=== PATIENT | female | born 1965 ===

== ENCOUNTER 2017-05-11 07:01 | Observation (INO) | payer MEDICAID ==
[2017-05-10 13:21] VITALS: BMI 32.9
[2017-05-11] MEDS ORDERED: Bupivacaine 0.5% 50 ML IJ ONE (07:26)
[2017-05-11] MEDS ORDERED: Lidocaine 1% Inj (20ml) IJ ONE (07:26)
[2017-05-11] MEDS ORDERED: ceFAZolin 1 GM in Sodium Chloride 0.9% 100 ML IVPB ONE (07:26)
--- NOTE | 2017-05-11 07:28 | CP.SDSHP ---
Same Day Surgery H & P - History Proposed Procedure: Tarsal tunnel release left foot Pre-Op Diagnosis: Tarsal tunnel syndrome left foot - Previous Medical/Surgical History Pain: 6.Severe Pain - Allergies Allergies: Allergies No Known Allergies Allergy (Verified 06/15/16 20:27) - Physical Exam Mental Status: Alert & Oriented x3 - {Optional Preform as Required} Integument: WNL Ortho: WNL - Impression Pt. Evaluated Today:Candidate for Anesthesia & Procedure: Yes - Date & Time Date: 05/11/17 Time: 07:28 Short Stay Discharge - Short Stay Discharge Admitting Diagnosis/Reason for Visit: G57.52 Disposition: HOME/ ROUTINE Medications: Cephalexin [Keflex] 500 mg PO TID 7 Days oxyCODONE/Acetaminophen [Percocet 5/325 mg Tab] 1 tab PO Q4 PRN #30 tab PRN Reason: Pain, Moderate (4-7) Referrals: Connor Welsh MD [Primary Care Provider] - Instructions: Pain Management After Surgery (GEN), Surgical Site Infections (DC ), RICE Therapy (GEN), Oxycodone/Acetaminophen (By mouth) Progress Note/Discharge Note with Instructions: - Patient evaluated bedside s/p surgical procedure. - After surgical procedure patient in NAD - (+) Void, (+) Appetite - Capillary refill time <3s and NVSI intact. - Patient denies complaints at this time - Post operative instructions and plan of care explained to patient at length. - Pt. acknowledges understanding. - Patient stable for DC per podiatric surgery
[2017-05-11] MEDS ORDERED: Sodium Chloride 0.9% 1,000 ML IV SCH (07:30)
--- NOTE | 2017-05-11 07:31 | CP.PCM.PN ---
Subjective - Date & Time of Evaluation Date of Evaluation: 05/11/17 Time of Evaluation: 07:28 - Subjective Subjective: 52 year old female patient with PMH of HTN seen in [facility] for preoperative evaluation for right bunion surgery by Dr. Ojeda today. Patient has been having a lot of pain to her left foot and ankle recently and has exhausted conservative treatment. She now opts for surgical intervention. NPO status confirmed. Patient is NAD and AAO x 3. Denies N/V/F/C/CP/SOB 59 year old female with PMH of HTN, arthritis was seen in [facility] for pre-operative evaluation for right bunion surgery by today. Patient has been having a lot of pain on her right bunion and has exhausted conservative treatment and now opts for surgical intervention. NPO status confirmed. Patient is NAD and AAOx3, denies n/v/f/c/sob/cp. Objective - Medications Medications: Current Medications Bupivacaine HCl (Marcaine 0.5% 50 Ml) 30 ml IJ ONCE ONE Stop: 05/11/17 07:27 Cefazolin Sodium 1 gm/ Sodium (Chloride) 100 mls @ 100 mls/hr IVPB ONCE ONE Stop: 05/11/17 08:25 Sodium Chloride (Sodium Chloride 0.9%) 1,000 mls @ 0 mls/hr IV .Q0M RYLIE PRN Reason: As Directed Stop: 05/12/17 07:26 Lidocaine HCl (Lidocaine 1% (20ml)) 20 ml IJ ONCE ONE Stop: 05/11/17 07:27 - Constitutional Appears: Well, Non-toxic, No Acute Distress - Extremities Exam Additional comments: LE focused exam Vasc: DP/PT pulses palpable 2/4 b/l. Skin temp warm to warm from proximal to distal. CFT < 3 seconds to digits 1-5 b/l. No lower extremity edema noted at this time. Neuro: Epicritic and protective sensation grossly intact b/l. Positive Tinnel sign left foot Derm: No open lesions, wounds, maceration, xerosis, abnormal pigmentation or abnormal growths noted at this time MSK: Pain to medial ankle with eversion of left foot - Neurological Exam Neurological Exam: Alert, Awake, Oriented x3 - Psychiatric Exam Psychiatric exam: Normal Affect, Normal Mood Assessment and Plan - Assessment and Plan (Free Text) Assessment: 52 year old female with Tarsal Tunnel Syndrome seen preoperatively in [facility] Plan: Pt was seen and examined in [facility] Pt NPO status was confirmed All Pre-op testing and clearance was in the chart Pt has exhausted all conservative treatment at this time and is opting for surgical intervention Pt was explained procedure and post-operative course All pt's questions were answered to satisfaction No guarantees were made Pt understands all risks, benefits and complications of procedure Pt will follow-up with Dr. Ojeda
[2017-05-11] MEDS ORDERED: Bupivacaine 0.5% Inj(30mL) ONE (07:37)
[2017-05-11 07:40] LABS: BASO % 0.4 % (0.0-2.0); EOS # 0.2 K/uL (0.0-0.7); EOS % 1.8 % (0.0-4.0); HEMATOCRIT 38.9 % (34.0-47.0); LYMPH % 28.7 % (20.0-40.0); MEAN CELL VOLUME 82.1 fl (81.0-99.0); MEAN CORPUSCULAR HEMOGLOBIN 26.7 pg (27.0-31.0); MEAN CORPUSCULAR HGB CONC 32.5 g/dL (33.0-37.0); MEAN PLATELET VOLUME 9.7 fl (7.2-11.7); NEUT # 6.1 K/uL (1.8-7.0); NEUT % 59.1 % (50.0-75.0); NRBC % 0.1 % (0.0-0.0); RED CELL DISTRIBUTION WIDTH 15.1 % (11.5-14.5); WHITE BLOOD COUNT 10.4 K/uL (4.8-10.8)
[2017-05-11] MEDS ORDERED: Lactated Ringer's 1,000 ML IV ONE ×4 (07:45)
[2017-05-11] MEDS ORDERED: Rocuronium 10 mg/ml (5 ml) ONE (07:46)
[2017-05-11] MEDS ORDERED: Propofol 10 mg/ml Inj (20 ML) ONE ×2 (07:46→08:48)
[2017-05-11] MEDS ORDERED: Midazolam 2 MG/2 ML VIAL ONE (07:46)
[2017-05-11] MEDS ORDERED: Sodium Chloride 0.9% 200 ML IV ONE (08:00)
[2017-05-11 08:02] LABS: ALB/GLOB RATIO 1.2 (1.0-2.1); ALKALINE PHOSPHATASE 87 U/L (38-126); ALT/SGPT 24 U/L (9-52); AST/SGOT 17 U/L (14-36); BILIRUBIN,TOTAL 0.5 mg/dl (0.2-1.3); BLOOD UREA NITROGEN 15 mg/dl (7-17); CALCIUM 10.1 mg/dL (8.4-10.2); CARBON DIOXIDE 28 mmol/L (22-30); CHLORIDE 102 mmol/L (98-107); GFR AFRICAN-AMERICAN > 60; GLUCOSE,RANDOM 162 mg/dL (65-105); SODIUM 142 mmol/l (132-148); TOTAL PROTEIN 8.1 G/DL (6.3-8.2)
[2017-05-11] MEDS ORDERED: Dexamethasone 4 mg/1 ml ONE (08:29)
[2017-05-11] MEDS ORDERED: Neostigmine Methylsulfate 3mg/3ml Syringe IV ONE (08:30)
[2017-05-11] MEDS ORDERED: HYDROmorphone 0.5 mg/0.5 ml ISec IVP PRN (08:38)
[2017-05-11] MEDS ORDERED: Lactated Ringer's 1,000 ML IV SCH (08:38)
--- NOTE | 2017-05-11 09:13 | PCM.SURG1 ---
Surgeon's Initial Post Op Note - Surgeon's Notes Surgeon: Bandar Ojeda Bulk Clerk: Sandeep Martin Type of Anesthesia: General Endo Anesthesia Administered By: Dr. Dias Pre-Operative Diagnosis: Tarsal Tunnel Syndrome, Left foot Operative Findings: See dictation. M- 3-0 Vicryl, 3-0 Vicryl, 4-0 Prolene Post-Operative Diagnosis: Same Operation Performed: Tarsal Tunnel Release left foot Specimen/Specimens Removed: None Estimated Blood Loss: EBL {In ML}: 5 Blood Products Given: N/A Drains Used: No Drains Post-Op Condition: Good Date of Surgery/Procedure: 05/11/17 Time of Surgery/Procedure: 09:12
--- NOTE | 2017-05-11 11:21 | CP.PCM.HP ---
<Serafin Farnsworth - Last Filed: 05/11/17 14:38> History of Present Illness - History of Present Illness History of Present Illness: Patient seen and examined with attending in PACU. 52 year old female patient with PMH of HTN, hypothyroidism, anxiety presented this AM in [facility] for left tarsal tunnel release this AM. No complications noted throughout surgery. Patient has been having pain of her left foot/ankle x 5 years, was evaluated by Dr. Ojeda approx 3-5 months ago and diagnosed with left tarsal tunnel syndrome. Patient had exhausted conservative treatment and opted for surgical intervention. Denies N/V/F/C/CP/SOB. Patient with a lot of pain of left foot. PMD: Dr. Peterson PMHx: HTN, hypothyroidism, anxiety Meds: hydroxyine 25mg 2 caps BID lexapro 20mg qd ambien 10mg qhs Levothyroxine 125mcg qd amlodipine 10mg qd Verified meds with [facility] Allergies: NKDA Surgeries: Right foot surgery 10 yrs ago, unknown Family history: non-contributory Social history: Denies etoh, tobacco, or drug use. Present on Admission - Present on Admission Any Indicators Present on Admission: No Review of Systems - Review of Systems All systems: reviewed and no additional remarkable complaints except (mentioned in HPI) Past Patient History - Infectious Disease Hx of Infectious Diseases: None - Past Medical History & Family History Past Medical History?: Yes - Past Social History Smoking Status: Never Smoked - CARDIAC Hx Cardiac Disorders: Yes Hx Hypertension: Yes (NO MEDS) - PULMONARY Hx Respiratory Disorders: No - NEUROLOGICAL Hx Neurological Disorder: No - HEENT Hx HEENT Problems: No - RENAL Hx Chronic Kidney Disease: No - ENDOCRINE/METABOLIC Hx Endocrine Disorders: Yes Hx Diabetes Mellitus Type 2: Yes (NO MEDS) Hx Hypothyroidism: Yes - HEMATOLOGICAL/ONCOLOGICAL Hx Blood Disorders: No Hx Anemia: No Hx Blood Transfusions: No - INTEGUMENTARY Hx Dermatological Problems: No - MUSCULOSKELETAL/RHEUMATOLOGICAL Hx Musculoskeletal Disorders: No - GASTROINTESTINAL Hx Gastrointestinal Disorders: No - GENITOURINARY/GYNECOLOGICAL Hx Genitourinary Disorders: No - PSYCHIATRIC Hx Psychophysiologic Disorder: Yes Hx Anxiety: Yes Hx Depression: Yes - SURGICAL HISTORY Hx Surgeries: Yes Other/Comment: RIGHT FOOT SURGERY-LIGAMENT - ANESTHESIA Hx Anesthesia: Yes Hx Anesthesia Reactions: No Hx Malignant Hyperthermia: No Has any member of the family had a problem w/ anesthesia?: No Meds Allergies/Adverse Reactions: Allergies Allergy/AdvReac Type Severity Reaction Status Date / Time No Known Allergies Allergy Verified 06/15/16 20:27 Physical Exam - Constitutional Appears: Non-toxic, In Acute Distress (mild, due to pain) - Head Exam Head Exam: ATRAUMATIC, NORMAL INSPECTION, NORMOCEPHALIC - Eye Exam Eye Exam: Normal appearance - Neck Exam Neck exam: Positive for: Normal Inspection - Respiratory Exam Respiratory Exam: Clear to Auscultation Bilateral, NORMAL BREATHING PATTERN. absent: Decreased Breath Sounds, Rhonchi, Wheezes - Cardiovascular Exam Cardiovascular Exam: REGULAR RHYTHM, RRR, +S1, +S2 - GI/Abdominal Exam GI & Abdominal Exam: Normal Bowel Sounds, Soft. absent: Tenderness - Extremities Exam Additional comments: Right foot unremarkable. Left foot in dressing, c/d/i - Neurological Exam Neurological exam: Alert, Oriented x3 - Psychiatric Exam Psychiatric exam: Normal Affect, Normal Mood - Skin Skin Exam: Dry, Intact, Normal Color, Warm Results - Vital Signs Recent Vital Signs: Last Vital Signs Temp 96.6 F L 05/11/17 09:05 Pulse 85 05/11/17 10:20 Resp 18 05/11/17 10:20 BP 150/90 05/11/17 10:20 Pulse Ox 98 05/11/17 10:20 - Labs Result Diagrams: 05/11/17 07:34 05/11/17 07:34 Labs: Laboratory Results - last 24 hr 05/11/17 05/11/17 05/11/17 07:30 07:34 07:34 WBC 10.4 RBC 4.74 Hgb 12.7 Hct 38.9 MCV 82.1 MCH 26.7 L MCHC 32.5 L RDW 15.1 H Plt Count 237 MPV 9.7 Neut % (Auto) 59.1 Lymph % (Auto) 28.7 Woodson % (Auto) 10.0 Eos % (Auto) 1.8 Baso % (Auto) 0.4 Neut # 6.1 Lymph # 3.0 Woodson # 1.0 H Eos # 0.2 Baso # 0.0 Sodium 142 Potassium 4.0 Chloride 102 Carbon Dioxide 28 Anion Gap 16 BUN 15 Creatinine 0.7 Est GFR ( Amer) > 60 Est GFR (Non-Af Amer) > 60 POC Glucose (mg/dL) 167 H Random Glucose 162 H Calcium 10.1 Total Bilirubin 0.5 AST 17 ALT 24 Alkaline Phosphatase 87 Total Protein 8.1 Albumin 4.4 Globulin 3.7 Albumin/Globulin Ratio 1.2 05/11/17 09:28 WBC RBC Hgb Hct MCV MCH MCHC RDW Plt Count MPV Neut % (Auto) Lymph % (Auto) Woodson % (Auto) Eos % (Auto) Baso % (Auto) Neut # Lymph # Woodson # Eos # Baso # Sodium Potassium Chloride Carbon Dioxide Anion Gap BUN Creatinine Est GFR ( Amer) Est GFR (Non-Af Amer) POC Glucose (mg/dL) 135 H Random Glucose Calcium Total Bilirubin AST ALT Alkaline Phosphatase Total Protein Albumin Globulin Albumin/Globulin Ratio Assessment & Plan (1) Tarsal tunnel syndrome of left side Status: Acute (2) HTN (hypertension) Status: Chronic (3) Hypothyroidism Status: Chronic (4) Anxiety Status: Chronic (5) Obesity (BMI 30.0-34.9) Status: Chronic - Assessment and Plan (Free Text) Assessment: 52 year old female with PMH of HTN, hypothyroidism, anxiety s/p left foot tarsal tunnel release POD #0. Plan: (1) Tarsal tunnel syndrome of left side POD #0 - No complications reported during surgery - Pain not well controlled, observe in med/surg overnight - Lives alone - Percocet PO PRN pain - Podiatry following - PT Eval pending - Treat anxiety as needed (2) HTN (hypertension) - Slightly elevated likely due to pain - Restart home meds (3) Hypothyroidism - Restart home meds (4) Obesity - History of IGT from fasting glucose (162 x1) - Heart healthy/diabetic diet at this time <Kristin Ceja - Last Filed: 05/12/17 07:44> Physical Exam - Skin Additional comments: ADDENDUM ATTENDING NOTE PATIENT SEEN AND EXAMINED. POST TARSAL TUNNEL RELEASE. HX HTN AND HYPOTHYROIDISM. CASE DISCUSSED WITH RESIDENT. AGREE WITH FINDINGS AND PLAN. Results - Vital Signs Recent Vital Signs: Last Vital Signs Temp 98.8 F 05/12/17 05:00 Pulse 82 05/12/17 05:00 Resp 20 05/12/17 05:00 BP 144/76 05/12/17 05:00 Pulse Ox 97 05/12/17 05:00 - Labs Result Diagrams: 05/11/17 07:34 05/11/17 07:34 Labs: Laboratory Results - last 24 hr 05/11/17 05/11/17 05/11/17 07:34 07:34 09:28 WBC 10.4 RBC 4.74 Hgb 12.7 Hct 38.9 MCV 82.1 MCH 26.7 L MCHC 32.5 L RDW 15.1 H Plt Count 237 MPV 9.7 Neut % (Auto) 59.1 Lymph % (Auto) 28.7 Woodson % (Auto) 10.0 Eos % (Auto) 1.8 Baso % (Auto) 0.4 Neut # 6.1 Lymph # 3.0 Woodson # 1.0 H Eos # 0.2 Baso # 0.0 Sodium 142 Potassium 4.0 Chloride 102 Carbon Dioxide 28 Anion Gap 16 BUN 15 Creatinine 0.7 Est GFR ( Amer) > 60 Est GFR (Non-Af Amer) > 60 POC Glucose (mg/dL) 135 H Random Glucose 162 H Calcium 10.1 Total Bilirubin 0.5 AST 17 ALT 24 Alkaline Phosphatase 87 Total Protein 8.1 Albumin 4.4 Globulin 3.7 Albumin/Globulin Ratio 1.2
[2017-05-11] MEDS: Oxycodone/Acetaminophen 5/325 mg Tab PO PRN ×3 (11:42→20:59)
--- NOTE | 2017-05-11 23:35 | CARD ---
APPROVED REPORT EKG Measurement Heart [id number] [id number] <Conclusion> Normal sinus rhythm Normal ECG
[2017-05-12] MEDS: Oxycodone/Acetaminophen 5/325 mg Tab PO PRN ×2 (00:59→10:32)
[2017-05-12] MEDS ORDERED: Levothyroxine 125 MCG TAB PO SCH (06:30)
--- NOTE | 2017-05-12 08:29 | CP.PCM.PN ---
Subjective - Date & Time of Evaluation Date of Evaluation: 05/12/17 Time of Evaluation: 07:00 Objective - Vital Signs/Intake and Output Vital Signs (last 24 hours): Temp Pulse Resp BP Pulse Ox 98.8 F 82 20 144/76 97 05/12/17 05:00 05/12/17 05:00 05/12/17 05:00 05/12/17 05:00 05/12/17 05:00 Intake and Output: 05/12/17 05/12/17 06:59 18:59 Intake Total 600 Balance 600 - Medications Medications: Current Medications Acetaminophen (Tylenol 325mg Tab) 650 mg PO Q4 PRN PRN Reason: Pain, Mild (1-3) Amlodipine Besylate (Norvasc) 10 mg PO DAILY [facility] Escitalopram Oxalate (Lexapro) 20 mg PO [facility] Last Admin: 05/11/17 21:52 Dose: 20 mg Levothyroxine Sodium (Synthroid) 125 mcg PO DAILY@0630 [facility] Last Admin: 05/12/17 06:00 Dose: 125 mcg Oxycodone/Acetaminophen (Percocet 5/325 Mg Tab) 1 tab PO Q4 PRN PRN Reason: Pain, moderate (4-7) Stop: 05/14/17 09:10 Last Admin: 05/12/17 00:59 Dose: 1 tab Oxycodone/Acetaminophen (Percocet 5/325 Mg Tab) 2 tab PO Q4 PRN PRN Reason: Pain, severe (8-10) Stop: 05/14/17 09:10 Last Admin: 05/11/17 20:59 Dose: 2 tab - Labs Labs: 05/11/17 07:34 05/11/17 07:34
[2017-05-12 08:33] VITALS: RESP 18
[2017-05-12 10:19] VITALS: O2SAT 96
[2017-05-12 12:54] VITALS: BP 131/75; PULSE 57; TEMP 98.1
--- NOTE | 2017-05-12 16:25 | CP.PCM.DIS ---
<Marisel Juan - Last Filed: 05/12/17 16:31> Provider - Provider Date of Admission: 05/11/17 10:45 Attending physician: Kristin Ceja MD Primary care physician: Connor Welsh MD Time Spent in preparation of Discharge (in minutes): 30 Diagnosis - Discharge Diagnosis (1) Tarsal tunnel syndrome of left side Status: Acute (2) Anxiety Status: Chronic Hospital Course - Lab Results Lab Results: Most Recent Lab Values WBC 10.4 K/uL (4.8-10.8) 05/11/17 07:34 RBC 4.74 Mil/uL (3.80-5.20) 05/11/17 07:34 Hgb 12.7 g/dL (12.0-16.0) 05/11/17 07:34 Hct 38.9 % (34.0-47.0) 05/11/17 07:34 MCV 82.1 fl (81.0-99.0) 05/11/17 07:34 MCH 26.7 pg (27.0-31.0) L 05/11/17 07:34 MCHC 32.5 g/dL (33.0-37.0) L 05/11/17 07:34 RDW 15.1 % (11.5-14.5) H 05/11/17 07:34 Plt Count 237 K/uL (130-400) 05/11/17 07:34 MPV 9.7 fl (7.2-11.7) 05/11/17 07:34 Neut % (Auto) 59.1 % (50.0-75.0) 05/11/17 07:34 Lymph % (Auto) 28.7 % (20.0-40.0) 05/11/17 07:34 Kimball % (Auto) 10.0 % (0.0-10.0) 05/11/17 07:34 Eos % (Auto) 1.8 % (0.0-4.0) 05/11/17 07:34 Baso % (Auto) 0.4 % (0.0-2.0) 05/11/17 07:34 Neut # 6.1 K/uL (1.8-7.0) 05/11/17 07:34 Lymph # 3.0 K/uL (1.0-4.3) 05/11/17 07:34 Kimball # 1.0 K/uL (0.0-0.8) H 05/11/17 07:34 Eos # 0.2 K/uL (0.0-0.7) 05/11/17 07:34 Baso # 0.0 K/uL (0.0-0.2) 05/11/17 07:34 Sodium 142 mmol/l (132-148) 05/11/17 07:34 Potassium 4.0 MMOL/L (3.6-5.0) 05/11/17 07:34 Chloride 102 mmol/L (98-107) 05/11/17 07:34 Carbon Dioxide 28 mmol/L (22-30) 05/11/17 07:34 Anion Gap 16 (10-20) 05/11/17 07:34 BUN 15 mg/dl (7-17) 05/11/17 07:34 Creatinine 0.7 mg/dL (0.7-1.2) 05/11/17 07:34 Est GFR ( Amer) > 60 05/11/17 07:34 Est GFR (Non-Af Amer) > 60 05/11/17 07:34 POC Glucose (mg/dL) 135 mg/dL (65-110) H 05/11/17 09:28 Random Glucose 162 mg/dL (65-105) H 05/11/17 07:34 Calcium 10.1 mg/dL (8.4-10.2) 05/11/17 07:34 Total Bilirubin 0.5 mg/dl (0.2-1.3) 05/11/17 07:34 AST 17 U/L (14-36) 05/11/17 07:34 ALT 24 U/L (9-52) 05/11/17 07:34 Alkaline Phosphatase 87 U/L (38-126) 05/11/17 07:34 Total Protein 8.1 G/DL (6.3-8.2) 05/11/17 07:34 Albumin 4.4 g/dL (3.5-5.0) 05/11/17 07:34 Globulin 3.7 gm/dL (2.2-3.9) 05/11/17 07:34 Albumin/Globulin Ratio 1.2 (1.0-2.1) 05/11/17 07:34 - Hospital Course Hospital Course: 52 year old F patient with PMH of HTN, hypothyroidism, anxiety was admitted for observation and well pain control after L tarsal tunnel release yesterday. No complications noted throughout surgery. Podiatry followed patient. Adequate pain management. Patient was discharged home safely. Home medications: oxyCODONE/Acetaminophen [Percocet 5/325 mg Tab] 1 tab PO Q4 PRN #30 tab PRN Reason: Pain, Moderate (4-7) Discharge Exam - Head Exam Head Exam: ATRAUMATIC, NORMAL INSPECTION, NORMOCEPHALIC - Eye Exam Eye Exam: EOMI, Normal appearance, PERRL - ENT Exam ENT Exam: Mucous Membranes Moist - Respiratory Exam Respiratory Exam: Clear to PA & Lateral, NORMAL BREATHING PATTERN. absent: Rales, Rhonchi, Wheezes - Cardiovascular Exam Cardiovascular Exam: REGULAR RHYTHM, +S1, +S2 - GI/Abdominal Exam GI & Abdominal Exam: Normal Bowel Sounds, Soft. absent: Mass - Extremities Exam Additional comments: Left foot bandaged, no calf tenderness. - Back Exam Back exam: NORMAL INSPECTION - Neurological Exam Neurological exam: Alert, CN II-XII Intact, Oriented x3 - Psychiatric Exam Psychiatric exam: Normal Mood Discharge Plan - Discharge Medications Prescriptions: oxyCODONE/Acetaminophen [Percocet 5/325 mg Tab] 1 tab PO Q4 PRN #30 tab PRN Reason: Pain, Moderate (4-7) - Follow Up Plan Condition: GOOD Disposition: HOME/ ROUTINE Instructions: Oxycodone/Acetaminophen (By mouth), Pain Management After Surgery (GEN), Surgical Site Infections (DC), RICE Therapy (GEN) Additional Instructions: Please remain non weight bearing to left leg. All ambulation should be performed with the aid of a walker assistive device or your crutches. Please rest and elevate your left leg as much as possible Take pain medication and antibiotics as indicated Please call Dr. Ojeda's office to make a followup appointment for next week Do not hesitate to call his office with any questions or concerns that may arise Referrals: Connor Welsh MD [Primary Care Provider] - <Kristin Ceja - Last Filed: 05/14/17 09:12> Provider - Provider Date of Admission: 05/11/17 10:45 Attending physician: Kristin Ceja MD Primary care physician: Connor Welsh MD Hospital Course - Lab Results Lab Results: Most Recent Lab Values WBC 10.4 K/uL (4.8-10.8) 05/11/17 07:34 RBC 4.74 Mil/uL (3.80-5.20) 05/11/17 07:34 Hgb 12.7 g/dL (12.0-16.0) 05/11/17 07:34 Hct 38.9 % (34.0-47.0) 05/11/17 07:34 MCV 82.1 fl (81.0-99.0) 05/11/17 07:34 MCH 26.7 pg (27.0-31.0) L 05/11/17 07:34 MCHC 32.5 g/dL (33.0-37.0) L 05/11/17 07:34 RDW 15.1 % (11.5-14.5) H 05/11/17 07:34 Plt Count 237 K/uL (130-400) 05/11/17 07:34 MPV 9.7 fl (7.2-11.7) 05/11/17 07:34 Neut % (Auto) 59.1 % (50.0-75.0) 05/11/17 07:34 Lymph % (Auto) 28.7 % (20.0-40.0) 05/11/17 07:34 Kimball % (Auto) 10.0 % (0.0-10.0) 05/11/17 07:34 Eos % (Auto) 1.8 % (0.0-4.0) 05/11/17 07:34 Baso % (Auto) 0.4 % (0.0-2.0) 05/11/17 07:34 Neut # 6.1 K/uL (1.8-7.0) 05/11/17 07:34 Lymph # 3.0 K/uL (1.0-4.3) 05/11/17 07:34 Kimball # 1.0 K/uL (0.0-0.8) H 05/11/17 07:34 Eos # 0.2 K/uL (0.0-0.7) 05/11/17 07:34 Baso # 0.0 K/uL (0.0-0.2) 05/11/17 07:34 Sodium 142 mmol/l (132-148) 05/11/17 07:34 Potassium 4.0 MMOL/L (3.6-5.0) 05/11/17 07:34 Chloride 102 mmol/L (98-107) 05/11/17 07:34 Carbon Dioxide 28 mmol/L (22-30) 05/11/17 07:34 Anion Gap 16 (10-20) 05/11/17 07:34 BUN 15 mg/dl (7-17) 05/11/17 07:34 Creatinine 0.7 mg/dL (0.7-1.2) 05/11/17 07:34 Est GFR ( Amer) > 60 05/11/17 07:34 Est GFR (Non-Af Amer) > 60 05/11/17 07:34 POC Glucose (mg/dL) 135 mg/dL (65-110) H 05/11/17 09:28 Random Glucose 162 mg/dL (65-105) H 05/11/17 07:34 Calcium 10.1 mg/dL (8.4-10.2) 05/11/17 07:34 Total Bilirubin 0.5 mg/dl (0.2-1.3) 05/11/17 07:34 AST 17 U/L (14-36) 05/11/17 07:34 ALT 24 U/L (9-52) 05/11/17 07:34 Alkaline Phosphatase 87 U/L (38-126) 05/11/17 07:34 Total Protein 8.1 G/DL (6.3-8.2) 05/11/17 07:34 Albumin 4.4 g/dL (3.5-5.0) 05/11/17 07:34 Globulin 3.7 gm/dL (2.2-3.9) 05/11/17 07:34 Albumin/Globulin Ratio 1.2 (1.0-2.1) 05/11/17 07:34 Discharge Exam - Skin Additional comments: ADDENDUM ATTENDING NOTE PATIENT SEEN AND EXAMINED. CASE DISCUSSED WITH RESIDENT. AGREE WITH FINDINGS AND PLAN.
--- NOTE | 2017-05-18 10:18 | PCM.OP ---
Operative Report - Operative Report Date of Surgery/Procedure: 05/11/17 Time of Surgery/Procedure: 07:45 Surgeon: [place] [employer] Director: Sina PGY 3, Dheeraj PGY 1 Anesthesia/Sedation: General Pre-Operative Diagnosis: Left foot tarsal tunnel syndrome Post-Operative Diagnosis: Same Indication for Surgery: This is a 52 y/o female with the above mentioned diagnosis. The patient has exhausted all forms of conservative treatment at this time and wishes to proceed with surgical intervention. After complete explainations of risks, benefits, and complcitions the patient signed the consent form. Prior to taking the patient to the OR IV pre op antibiotics were given and NPO status was confirmed. Operative Findings: Patient was brought to the operating room and placed on the operating room table in a supine position. Prior to induction a thigh tourniquet was placed at 350mmHg w/o complication. Following induction of general anesthesia the left foor and ankle was prepped and draped in normal sterile fashion, the tourniqute inflated and procedure began. Procedure/Operation Description: PROCEDURE #1: Left foor tarsal tunnel release. At this time attention was directed tot he medial aspect of the patient left ankle where first the medial mallelous was outlined with marker for anatomical identification. Following utilzing a #15 blade a roughly 4 cm long incision was made distal to the mallelous in a curvilinear type going proximal and distal following the course of the Tibial Nerve. At this time the incision was deeped making sure to retract all tendons and vascular structures and ligating small bleeders as necessary. Upon Reaching the laciniate ligament a #15 blade was used to make an incision through this exposing the tibial nerve to the field. At this time the nerve was fully identified and freeing began distally. The medial calcaneal nerve branch was found first and freed and the nerve was traced distally as it passed under the adductur muscle belly. The Muscle sheat overlying the adductor was transected allowing for the retraction of the muscle exposing the medial and lateral plantar nerve branches of the tibial nerve to the field at the guicho pedis. First the lateral plantar tunnel was freed down utizling anamaria type scissors. Following the opening of the lateral canal focus was turned medially where the same procedure was performed. Following this the central band that divides the canals was cut fully releasing the tunnel distally. Attention was then redirected proximally where the nerve was freed along its path and the proximal area of the retinaculum was transected allowing for the nerve to be fully freed proximally. Following this the wound was flushed with copious amounts of saline. The wound was then closed with 3-0, 4-0 vicryl and 4-0 nylon w/o complication. Patient wounds dressed normally and placed NWB in CAM boot. Estimated Blood Loss: 10 Complications: None Discharge & Condition: Patient was transferred tot PACU with VSS and NVSI to the Left foot and ankle. This patient will remain NWB and follow up withDr. Ojeda as previously scheduled with the patient.
== END 2017-05-12 15:00 | disposition home or self-care (01) ==
LOC: H.OPSURG 07:01 → H.PEDS 10:45
PROVIDERS: ADMIT Emergency Medicine; ATTEND Emergency Medicine
DX: G57.52 Tarsal tunnel syndrome, left lower limb (principal); I10 Essential (primary) hypertension; M19.90 Unspecified osteoarthritis, unspecified site; E03.9 Hypothyroidism, unspecified; F41.9 Anxiety disorder, unspecified; E66.9 Obesity, unspecified; Z68.30 Body mass index [BMI] 30.0-30.9, adult
CPT/HCPCS: 28035; 36415; 80053; 82948; 85025; 93005; 97116; 97162; G0378; G8978; G8979; G8980; J0690; J1100; J2001; J2250; J2405; J2704; J2710; J3010; J7030; J7120